=== PATIENT | female | born 1950 | race Caucasian/White ===

== ENCOUNTER 2024-03-29 16:07 | Emergency (ER) | payer MEDICARE ==
[~2024-03-29] VITALS: Ht 157.5 cm; Wt 101.1 kg
[2024-03-29] MEDS ORDERED: HYDROCODONE BIT/ACETAMINOPHEN 5/325 MG 1 TAB HOME.PACK PO ONE (18:15)
[2024-03-29 18:35] VITALS: BP 155/90
== END 2024-03-29 18:37 | disposition home or self-care (01) ==
LOC: ED 16:07
DX: S43.402A Unspecified sprain of left shoulder joint, initial encounter (principal); X58.XXXA Exposure to other specified factors, initial encounter; I10 Essential (primary) hypertension
CPT/HCPCS: 99283; A9270